=== PATIENT | female | born 1950 | race Caucasian/White ===

== ENCOUNTER 2019-04-06 10:56 | Inpatient (IN) ==
[2019-04-06 11:53] LABS: Basophils # 0.1 10*3/uL (0.0-0.2); Basophils % 0.6 % (0.0-0.8); Eosinophils # 0.2 10*3/uL (0.0-0.87); Eosinophils % 2.4 % (0.00-10.9); Hematocrit 46.3 VOL% (35.7-47.0); Hemoglobin 15.1 GM/DL (12.0-16.0); Immature Granulocytes % 0.4 %; Immature Granulocytes Absolute 0.03 #; Lymphocytes # 2.3 10*3/uL (1.4-4.0); Lymphocytes % 28.4 % (21.3-54.2); Mean Corpuscular HGB Conc 32.6 GM/DL (32-36); Mean Platelet Volume 9.6 FL (9.6-12.0); Monocytes % 6.9 % (1.7-12.7); Neutrophils % 61.3 % (38.7-73.9); Platelet Count 301 T/CUMM (130-400); Red Blood Count 5.09 MC/CUMM (3.8-5.5); Red Cell Distribution Width 14.2 % (9.3-17.3)
[2019-04-06 12:08] LABS: PT Patient Result 10.7 SECS (9.6-12.2); Partial Thromboplastin Time 23.8 SECS (20.8-36.0)
[2019-04-06 12:13] LABS: Albumin 3.5 G/DL (3.4-5.0); Calcium 9.3 MG/DL (8.5-10.1); Total Protein 7.7 G/DL (6.4-8.3)
[2019-04-06] MEDS ORDERED: ONDANSETRON 4 MG/2 ML VIAL IV PRN (14:42)
[2019-04-06] MEDS ORDERED: INFLUENZA VIRUS VACCINE 0.5 ML SYRINGE IM ONE (15:24)
[2019-04-06 15:25] LABS: PT Patient Result 10.7 SECS (9.6-12.2)
[2019-04-06 15:41] LABS: Albumin 3.5 G/DL (3.4-5.0); Total Protein 7.7 G/DL (6.4-8.3)
[2019-04-06] MEDS: PIPERACILLIN/TAZOBACTAM 3,375 MG in SODIUM CHLORIDE 0.9% 100 ML IV SCH (17:08)
[2019-04-06] MEDS: ZALEPLON 5 MG CAPSULE PO SCH (20:36)
[2019-04-06] MEDS: ENOXAPARIN 40 MG/0.4 ML SYRINGE SUBCUT SCH (20:36)
[2019-04-07] MEDS ORDERED: ZALEPLON 5 MG CAPSULE PO ONE (00:31)
[2019-04-07] MEDS: PIPERACILLIN/TAZOBACTAM 3,375 MG in SODIUM CHLORIDE 0.9% 100 ML IV SCH ×3 (00:41→18:00)
[2019-04-07 05:50] LABS: Basophils % 0.5 % (0.0-0.8); Eosinophils # 0.2 10*3/uL (0.0-0.87); Eosinophils % 2.1 % (0.00-10.9); Hematocrit 42.8 VOL% (35.7-47.0); Immature Granulocytes % 0.2 %; Immature Granulocytes Absolute 0.02 #; Lymphocytes # 2.8 10*3/uL (1.4-4.0); Lymphocytes % 34.2 % (21.3-54.2); Mean Corpuscular HGB Conc 32.7 GM/DL (32-36); Mean Corpuscular Volume 89.9 FL (87-102); Mean Platelet Volume 10.4 FL (9.6-12.0); Monocytes % 8.6 % (1.7-12.7); Neutrophils % 54.4 % (38.7-73.9); Platelet Count 311 T/CUMM (130-400); Red Blood Count 4.76 MC/CUMM (3.8-5.5); Red Cell Distribution Width 14.3 % (9.3-17.3); White Blood Count 8.2 T/CUMM (4-12)
[2019-04-07 06:22] LABS: Albumin 3.4 G/DL (3.4-5.0); Bilirubin,Total 1.5 MG/DL (0.2-1.0); Calcium 9.3 MG/DL (8.5-10.1); Osmolality,Calculated 268.1 MOS/KG (273-304); Thyroid Stimulating Hormone 3.22 uIU/ml (0.358-3.74); Total Protein 7.2 G/DL (6.4-8.3)
[2019-04-07] MEDS: LISINOPRIL/HCTZ 20-12.5 MG TABLET PO SCH ×2 (11:31→12:11)
[2019-04-07] MEDS: POTASSIUM CHLORIDE 20 MEQ TABLET PO PRN ×4 (11:32→18:00)
[2019-04-07] MEDS: LEVOTHYROXINE 75 MCG TABLET PO SCH (11:32)
[2019-04-07] MEDS: SERTRALINE 100 MG TABLET PO SCH (11:32)
[2019-04-07] MEDS: PANTOPRAZOLE 40 MG TABLET PO SCH (11:32)
[2019-04-07 13:51] LABS: Eosinophils,Pleural Fluid 3 %; Lymphocytes,Pleural Fluid 74 %; Monocytes,Pleural Fluid 2 %; Neutrophils,Pleural Fluid 21 %
[2019-04-07 13:52] LABS: RBC,Pleural Fluid 3055 T/CUMM
[2019-04-07] MEDS: ENOXAPARIN 40 MG/0.4 ML SYRINGE SUBCUT SCH ×2 (21:00→21:01)
[2019-04-07] MEDS: ZALEPLON 5 MG CAPSULE PO SCH (21:54)
[2019-04-08] MEDS: PIPERACILLIN/TAZOBACTAM 3,375 MG in SODIUM CHLORIDE 0.9% 100 ML IV SCH ×3 (00:17→16:51)
[2019-04-08 06:04] LABS: Basophils # 0.1 10*3/uL (0.0-0.2); Basophils % 0.8 % (0.0-0.8); Eosinophils # 0.2 10*3/uL (0.0-0.87); Eosinophils % 3.6 % (0.00-10.9); Hematocrit 39.4 VOL% (35.7-47.0); Hemoglobin 12.7 GM/DL (12.0-16.0); Immature Granulocytes % 0.3 %; Immature Granulocytes Absolute 0.02 #; Lymphocytes # 2.6 10*3/uL (1.4-4.0); Lymphocytes % 38.7 % (21.3-54.2); Mean Corpuscular HGB Conc 32.2 GM/DL (32-36); Mean Platelet Volume 10.1 FL (9.6-12.0); Monocytes % 9.9 % (1.7-12.7); Neutrophils % 46.7 % (38.7-73.9); Platelet Count 265 T/CUMM (130-400); Red Blood Count 4.33 MC/CUMM (3.8-5.5); Red Cell Distribution Width 14.3 % (9.3-17.3); White Blood Count 6.7 T/CUMM (4-12)
[2019-04-08 06:45] LABS: Albumin 2.9 G/DL (3.4-5.0); Bilirubin,Total 0.8 MG/DL (0.2-1.0); Osmolality,Calculated 271.7 MOS/KG (273-304); Total Protein 6.3 G/DL (6.4-8.3)
[2019-04-08 07:00] LABS: Calcium 8.9 MG/DL (8.5-10.1)
[2019-04-08] MEDS: LEVOTHYROXINE 75 MCG TABLET PO SCH (07:21)
[2019-04-08] MEDS: PANTOPRAZOLE 40 MG TABLET PO SCH (08:27)
[2019-04-08] MEDS: SERTRALINE 100 MG TABLET PO SCH (08:27)
[2019-04-08] MEDS: LISINOPRIL/HCTZ 20-12.5 MG TABLET PO SCH (08:27)
[2019-04-08] MEDS: ENOXAPARIN 40 MG/0.4 ML SYRINGE SUBCUT SCH (21:17)
[2019-04-08] MEDS: ZALEPLON 5 MG CAPSULE PO SCH (21:26)
[2019-04-09] MEDS: PIPERACILLIN/TAZOBACTAM 3,375 MG in SODIUM CHLORIDE 0.9% 100 ML IV SCH ×3 (00:51→16:20)
[2019-04-09 05:45] LABS: Basophils # 0.1 10*3/uL (0.0-0.2); Basophils % 0.6 % (0.0-0.8); Eosinophils # 0.4 10*3/uL (0.0-0.87); Eosinophils % 4.9 % (0.00-10.9); Hematocrit 38.5 VOL% (35.7-47.0); Hemoglobin 12.3 GM/DL (12.0-16.0); Immature Granulocytes % 0.3 %; Immature Granulocytes Absolute 0.02 #; Lymphocytes # 3.4 10*3/uL (1.4-4.0); Mean Corpuscular HGB Conc 31.9 GM/DL (32-36); Mean Corpuscular Volume 91.2 FL (87-102); Mean Platelet Volume 10.1 FL (9.6-12.0); Neutrophils % 41.2 % (38.7-73.9); Platelet Count 251 T/CUMM (130-400); Red Blood Count 4.22 MC/CUMM (3.8-5.5); Red Cell Distribution Width 14.6 % (9.3-17.3); White Blood Count 7.8 T/CUMM (4-12)
[2019-04-09 06:16] LABS: Albumin 2.8 G/DL (3.4-5.0); Bilirubin,Total 0.7 MG/DL (0.2-1.0); Calcium 8.5 MG/DL (8.5-10.1); Total Protein 6.1 G/DL (6.4-8.3)
[2019-04-09] MEDS: LEVOTHYROXINE 75 MCG TABLET PO SCH (06:45)
[2019-04-09] MEDS: PANTOPRAZOLE 40 MG TABLET PO SCH (08:39)
[2019-04-09] MEDS: POTASSIUM CHLORIDE 20 MEQ TABLET PO PRN ×3 (08:39→15:10)
[2019-04-09] MEDS: SERTRALINE 100 MG TABLET PO SCH (08:40)
[2019-04-09] MEDS: LISINOPRIL/HCTZ 20-12.5 MG TABLET PO SCH (08:40)
[2019-04-09] MEDS ORDERED: CLORAZEPATE 3.75 MG TABLET PO PRN (12:21)
[2019-04-09] MEDS: ZALEPLON 5 MG CAPSULE PO SCH (20:51)
[2019-04-09] MEDS: ENOXAPARIN 40 MG/0.4 ML SYRINGE SUBCUT SCH (20:52)
[2019-04-10] MEDS: PIPERACILLIN/TAZOBACTAM 3,375 MG in SODIUM CHLORIDE 0.9% 100 ML IV SCH ×2 (01:12→10:51)
[2019-04-10] MEDS: LEVOTHYROXINE 75 MCG TABLET PO SCH (07:03)
[2019-04-10] MEDS: POTASSIUM CHLORIDE 20 MEQ TABLET PO PRN ×2 (10:50→14:31)
[2019-04-10] MEDS: SERTRALINE 100 MG TABLET PO SCH (10:51)
[2019-04-10] MEDS: LISINOPRIL/HCTZ 20-12.5 MG TABLET PO SCH (10:51)
[2019-04-10] MEDS: PANTOPRAZOLE 40 MG TABLET PO SCH (10:51)
[2019-04-10 11:11] LABS: Glucose,Pleural Fluid 75 MG/DL; LDH,Body Fluid 305 U/L; Total Protein,Body Fluid 4.5 G/DL; Triglycerides,Body Fluid < 14 MG/DL
[2019-04-10 13:21] VITALS: BP 112/74
[2019-04-16 11:11] LABS: Adenosine Deaminase Pleural Fl 4.8 U/L (0.0 - 9.4); Source PLEURAL FLUID
== END 2019-04-10 15:05 | disposition home or self-care (01) | DRG 188 ==
LOC: N.ED 10:56 → N.EDINP 13:50 → SUATTDRO 13:50 → N.2E 14:14
PROVIDERS: ADMIT Emergency Medicine; ATTEND Internal Medicine
PROC: IRTHORA (2019-04-07 10:10)